=== PATIENT | male | born 1975 | race Caucasian/White ===

== ENCOUNTER 2021-08-27 10:20 | Emergency (ER) | payer MEDICAID ==
[2021-08-27] MEDS ORDERED: Ketorolac 30 MG/ML SDV IM ONE (11:26)
== END 2021-08-27 11:58 | disposition home or self-care (01) ==
LOC: VM.ED 10:20
DX: L03.211 Cellulitis of face (principal); E11.9 Type 2 diabetes mellitus without complications; Z86.14 Personal history of Methicillin resistant Staphylococcus aureus infection
CPT/HCPCS: 96372; 99283; 99283-25; J1885

== ENCOUNTER 2021-11-20 10:13 | Emergency (ER) | payer MEDICAID ==
[2021-11-20] MEDS: Lidocaine 1% with EPINEPHrine 1:100,000 20 ML MDV INFILT PRN (10:52)
[2021-11-20] MEDS: Diphtheria,Pertussis(Acell),Tetanus Vaccine 0.5 ML Syringe IM ONE (10:53)
== END 2021-11-20 11:16 | disposition home or self-care (01) ==
LOC: VM.ED 10:13
DX: S61.412A Laceration without foreign body of left hand, initial encounter (principal); E11.9 Type 2 diabetes mellitus without complications; I10 Essential (primary) hypertension; Z79.84 Long term (current) use of oral hypoglycemic drugs; Z23 Encounter for immunization; W26.8XXA Contact with other sharp object(s), not elsewhere classified, initial encounter
CPT/HCPCS: 12001; 90471; 90715; 99282-25

== ENCOUNTER 2022-01-05 13:09 | Emergency (ER) | payer MEDICAID ==
[2022-01-05] MEDS ORDERED: methylPREDNISolone Sodium Succinate 125 MG/2 ML SDV IM ONE (13:51)
== END 2022-01-05 14:10 | disposition home or self-care (01) ==
LOC: VM.ED 13:09
DX: M54.41 Lumbago with sciatica, right side (principal); I10 Essential (primary) hypertension; E10.9 Type 1 diabetes mellitus without complications
CPT/HCPCS: 96372; 99283